=== PATIENT | female | born 1945 | race Caucasian/White ===

== ENCOUNTER 2017-03-02 17:31 | Emergency (ER) | payer OTHER ==
[2017-03-02 17:49] VITALS: TEMP 98.2; O2SAT 95
--- NOTE | 2017-03-02 18:25 | EDPHY ---
General - History Smoking Status: Never smoked Narrative: CHIEF COMPLAINT: Fall, headache, chin lac, hand pain HISTORY OF PRESENT ILLNESS: Patient presents with complaints of headache status post fall. She said she was outside for home when she tripped and fell, striking the concrete. She landed on her hands and then struck her face on the concrete. She has a headache. No loss of consciousness, but she "did see stars for a minute." Some nausea but no vomiting. No changes in vision. She has a chin laceration that is mildly painful. No neck pain or stiffness. No chest pain or shortness of breath. No back pain. No pain in the legs. She does have pain in the right hand, medially. It is mild. It is worse with palpation. Difficulty fully flexing the pinky due to the pain. No numbness or tingling. No other associated complaints or modifying factors. REVIEW OF SYSTEMS: Ten systems reviewed and are negative unless otherwise noted in the HPI PCP: Dr. guerrero SPECIALISTS: None PAST MEDICAL HISTORY: Reviewed. Significant for orthopedic injuries and bronchiectasis with asthma. PAST SURGICAL HISTORY: Reviewed with patient SOCIAL HISTORY: Never smoker. No alcohol. No illicit substance use. Lives with her FAMILY HISTORY: Noncontributory EXAMINATION General Appearance: Alert, no distress Head: normocephalic, atraumatic. chin laceration as noted below. No Carlni sign. No raccoon eyes. Eyes: Pupils equal and round, no conjunctival pallor or injection ENT, Mouth: Mucous membranes moist. Airway widely patent. Neck: Normal inspection, supple, non-tender. No crepitus, step-off or deformity Respiratory: Lungs are clear to auscultation. No wheezing, rhonchi or crackles Cardiovascular: Regular rate and rhythm. No murmur. Pulses intact distally with symmetric radial pulses 2+ but Gastrointestinal: Abdomen is soft and nontender Back: non-tender, no bony abnormalities Neurological: GCS 15. A&O, nonfocal, normal gait. Strength is symmetric in all 4 limbs. No wrist drop. Skin: Warm and dry, no rash. 1.5 cm laceration on the chin, midline. No active bleeding. No foreign body. This is irregular shaped margins Extremities: Tenderness of the right hand, medial greater than lateral. There is no deformity. Range of motion of the right hand is symmetric to the left. No wrist drop. No tenderness of the right wrist. No tenderness of the right elbow or shoulder. Neurovascular intact Psychiatric: Mood and affect normal DIFFERENTIAL DIAGNOSES: Including but not limited to closed head injury, intracranial hemorrhage, chin line, mandibular injury, hand sprain, hand fracture, neck sprain MDM: 6:25 p.m. Mechanical fall with head injury, nausea, headache, chin laceration hand pain. Areas of injury will be imaged with CT scan of the head and cervical spine, and x-ray. The chin laceration is nonpulsatile. It has been anesthetized. Proceed with irrigation closure of this. She is in no acute distress. 7:12 p.m. Case discussed with radiologist Dr. Sanchez. He informed there are no acute changes on the CT scan of the head or cervical spine. There are chronic changes as noted. There is some change in the white vessel changes compared to 2008 MRI. I notified the patient of this. 7:25 p.m. Chin laceration has been repaired without complication. Wound care discussed. Hand x-ray as read by me, without the aid of the radiologist, reveals no acute findings PROCEDURE: Laceration repair Consent: Verbal Location: Midline chin Length of repair: 1.5 cm Complexity: Simple Layer involvement: Single Anesthesia: Local. 1% lidocaine plain. 4 mL Irrigation: Extensive Debridement: None Procedure description: Following good anesthesia, the wound was copiously irrigated. Wound bed was explored and there is no foreign body noted. Wound borders were approximated well with good hemostasis. Tolerated well without complication. Suture/Staple material: 6-0 Prolene, 2 simple interrupted sutures Wound care: Routine as discussed Suture/Staple removal: 5-7 Days (Sincere Greene) Discussion: The patient was evaluated and managed by the Physician Silk Presser/ Nurse Practitioner. My co-signature indicates that I have reviewed this chart and I agree with the findings and plan of care as documented. I am the secondary supervising physician. (Kianna Acevedo) - Objective Vital Signs: Initial Vital Signs Temperature (C) 36.8 C 03/02/17 17:44 Heart Rate 80 03/02/17 17:44 Respiratory Rate 16 03/02/17 17:44 Blood Pressure 165/112 H 03/02/17 17:44 O2 Sat (%) 95 03/02/17 17:44 O2 Delivery Mode Room Air Allergies/Adverse Reactions: erythromycin base [Erythromycin Base] Allergy (Severe, Verified 03/02/17 17:42) SEVERE STOMACH CRAMPS maitake mushroom Allergy (Severe, Verified 03/02/17 17:42) trouble breathing Penicillins Allergy (Severe, Verified 03/02/17 17:42) TROUBLE BREATHING poria mushroom Allergy (Severe, Verified 03/02/17 17:42) trouble breathing reishi mushroom Allergy (Severe, Verified 03/02/17 17:42) trouble breathing rosuvastatin calcium [From Crestor] Allergy (Severe, Verified 03/02/17 17:42) SEVERE TROUBLE BREATHING shiitake mushroom Allergy (Severe, Verified 03/02/17 17:42) aripiprazole [From Abilify] Allergy (Mild, Verified 03/02/17 17:42) ITCH agaricus mushroom (agaricus bisporu Allergy (Verified 03/02/17 17:42) beclomethasone dipropionate [From QNASL] Allergy (Verified 03/02/17 17:42) ACTIFED COLD AND ALLERGY Allergy (Severe, Uncoded 09/26/14 23:35) TROUBLE BREATHING ALL MYCINS Allergy (Severe, Uncoded 09/26/14 23:35) SEVERE STOMACH CRAMPS CHEESE Allergy (Severe, Uncoded 09/27/14 08:13) SEVERE TROUBLE BREATHING MIOLDS Allergy (Severe, Uncoded 09/27/14 08:13) TROUBLE BREATHING Home Medications: Medication Instructions Recorded Atorvastatin Calcium [Lipitor 20 20 mg PO HS 01/20/12 mg (*)] Estradiol [Estradiol 1 MG (*)] 1 mg PO DAILY 01/20/12 Hydrochlorothiazide [HCTZ (*)] 12.5 mg PO DAILY 01/20/12 Levothyroxine [Synthroid 50 mcg 50 mcg PO DAILY06 01/20/12 (*)] Montelukast Sodium [Singulair 10 10 mg PO BID 01/20/12 mg (*)] Omeprazole [Prilosec 40 mg] 40 mg PO BID 01/20/12 buPROPion XL [Wellbutrin 150mg XL] 300 mg PO DAILY 01/20/12 Beclomethasone Qvar 80 [Qvar 80 2 puffs IH TID 09/27/14 (*)] Budesonide/Formoterol 160/4.5 2 puffs IH TID 09/27/14 [Symbicort 160-4.5 Mcg Inh (*)] Mometasone Furoate Nasal [Nasonex] 1 sprays NASAL DAILY PRN 09/27/14 OLANZapine [Zyprexa Zydis] 10 mg PO DAILY 09/27/14 Olopatadine HCl [Patanase] 2 spray NS DAILY PRN 09/27/14 Tiotropium Inhaler [Spiriva 1 inh IH DAILY 09/27/14 Inhaler (RX)] diphenhydrAMINE [Benadryl 25 MG 25 mg PO DAILY PRN 09/27/14 (*)] lamoTRIgine [LamICTAL 100 MG (*)] 100 mg PO HS 09/27/14 lamoTRIgine [LamICTAL 100 MG (*)] 200 mg PO DAILY 09/27/14 Albuterol [Proventil Neb] 3 ml IH Q2 PRN #60 deyvial 10/01/14 Ipratropium/Albuterol [Duoneb (*)] 3 ml IH QID #60 deyvial 10/01/14 Departure - Departure Disposition: Home, Routine, Self-Care Clinical Impression: Closed head injury, Fall, Laceration of chin, Contusion of hand, right Condition: Good Instructions: Care For Your Stitches (ED), Laceration (ED), Head Injury (ED), Fall Prevention (ED) Additional Instructions: 1. Daily wound care as discussed until sutures removed 2. Follow up with primary care physician for closed head injury 3. Follow up with primary care physician Orthopedics for hand injury 4. ED precautions as discussed 5. Return to ED in 5-7 days for suture removal Referrals: Denice Guerrero MD [Primary Care Provider] - As per Instructions
[2017-03-02 20:03] VITALS: BP 177/79; PULSE 79; RESP 20
== END 2017-03-02 20:03 | disposition home or self-care (01) ==
PROC: 0HQ1XZZ Repair Face Skin, External Approach (ICD-10-PCS; principal; 2017-03-02)
DX: S01.81XA Laceration without foreign body of other part of head, initial encounter (principal); S60.221A Contusion of right hand, initial encounter; W01.198A Fall on same level from slipping, tripping and stumbling with subsequent striking against other object, initial encounter

== ENCOUNTER → 2017-05-15 | Outpatient (CLI) | payer OTHER | LOC: FIMAGING 09:20 | PROVIDERS: ATTEND Internal Medicine | DX: Z13.820 Encounter for screening for osteoporosis (principal); M85.89 Other specified disorders of bone density and structure, multiple sites | CPT/HCPCS: G0202 ==

== ENCOUNTER → 2017-11-25 | Outpatient (CLI) | payer OTHER | LOC: FIMAGING 17:11 | PROVIDERS: ATTEND Internal Medicine | DX: R60.0 Localized edema (principal) ==

== ENCOUNTER → 2018-03-23 | Outpatient (CLI) | payer OTHER | LOC: FIMAGING 15:41 | PROVIDERS: ATTEND Internal Medicine | DX: M41.86 Other forms of scoliosis, lumbar region (principal); M51.36 Other intervertebral disc degeneration, lumbar region; M43.16 Spondylolisthesis, lumbar region ==

== ENCOUNTER 2018-05-17 16:42 | Emergency (ER) | payer OTHER ==
--- NOTE | 2018-05-17 16:58 | EDPHY ---
H & P Stated Complaint: near syncope fall Time Seen by Provider: 05/17/18 16:57 HPI/ROS: CHIEF COMPLAINT: Vasovagal event, fall, head injury HISTORY OF PRESENT ILLNESS: The patient was at home and stood up. Shortly after while walking across the room she experienced a vasovagal episode in collapse. She struck her head on a piece of furniture. She presents to the emergency department today complaining of headache and requesting evaluation of her near syncopal event. The patient denies any chest pain or shortness of breath. She does admit she may have had decreased po intake today. The patient denies any symptoms of fever, cough or congestion. The patient denies dysuria. She denies any acute numbness or weakness. She reports the pain in her head is moderate in nature. She is not anticoagulated. REVIEW OF SYSTEMS: A comprehensive 10 point review of systems is otherwise negative aside from elements mentioned in the history of present illness. Source: Patient Exam Limitations: No limitations - Personal History Current Tetanus/Diphtheria Vaccine: Yes Current Tetanus Diphtheria and Acellular Pertussis (TDAP): Yes Tetanus Vaccine Date: < 10 years - Medical/Surgical History Hx Asthma: Yes Hx Chronic Respiratory Disease: No Hx Diabetes: No Hx Cardiac Disease: No Hx Renal Disease: No Hx Cirrhosis: No Hx Alcoholism: No Hx HIV/AIDS: No Hx Splenectomy or Spleen Trauma: No Other PMH: asthma, tonsilectomy, rhematic fever, scarlet fever, red measals, 2 C -secions, Bipolar, bronchietesis, HTN, emilie, - Social History Smoking Status: Never smoked - Physical Exam Exam: General Appearance: Alert, no distress Head: Tenderness to palpation and hematoma noted to the left parietal area Eyes: Pupils equal, round, reactive ENT, Mouth: No hemotympanum, no oral trauma Neck: Nontender, trachea midline Respiratory: No chest wall tender, subcutaneous air, lungs clear bilaterally Cardiovascular: Regular rate and rhythm Abdomen: Abdomen is soft and nontender, pelvis stable Skin: No lacerations, No abrasion Back: No midline T/L/S pain Extremities: Nontender, full range of motion Neurological: A&Ox3, normal motor function, normal sensory exam Constitutional: Initial Vital Signs Temperature (C) 36.8 C 05/17/18 16:52 Heart Rate 90 05/17/18 16:52 Respiratory Rate 16 05/17/18 16:52 Blood Pressure 202/99 H 18 16:52 O2 Sat (%) 96 05/17/18 16:52 O2 Delivery Mode Room Air Allergies/Adverse Reactions: erythromycin base [Erythromycin Base] Allergy (Severe, Verified 05/17/18 16:48) SEVERE STOMACH CRAMPS maitake mushroom Allergy (Severe, Verified 05/17/18 16:48) trouble breathing Penicillins Allergy (Severe, Verified 05/17/18 16:48) TROUBLE BREATHING poria mushroom Allergy (Severe, Verified 05/17/18 16:48) trouble breathing reishi mushroom Allergy (Severe, Verified 05/17/18 16:48) trouble breathing rosuvastatin calcium [From Crestor] Allergy (Severe, Verified 05/17/18 16:48) SEVERE TROUBLE BREATHING shiitake mushroom Allergy (Severe, Verified 05/17/18 16:48) aripiprazole [From Abilify] Allergy (Mild, Verified 05/17/18 16:48) ITCH agaricus mushroom (agaricus bisporu Allergy (Verified 05/17/18 16:48) beclomethasone dipropionate [From QNASL] Allergy (Verified 05/17/18 16:48) ACTIFED COLD AND ALLERGY Allergy (Severe, Uncoded 05/17/18 16:48) TROUBLE BREATHING ALL MYCINS Allergy (Severe, Uncoded 05/17/18 16:48) SEVERE STOMACH CRAMPS CHEESE Allergy (Severe, Uncoded 05/17/18 16:48) SEVERE TROUBLE BREATHING MIOLDS Allergy (Severe, Uncoded 05/17/18 16:48) TROUBLE BREATHING Home Medications: Medication Instructions Recorded Atorvastatin Calcium [Lipitor 20 20 mg PO HS 01/20/12 mg (*)] Levothyroxine [Synthroid 50 mcg 50 mcg PO DAILY06 01/20/12 (*)] Montelukast Sodium [Singulair 10 10 mg PO BID 01/20/12 mg (*)] Omeprazole [Prilosec 40 mg] 40 mg PO BID 01/20/12 buPROPion XL [Wellbutrin 150mg XL] 300 mg PO DAILY 01/20/12 Budesonide/Formoterol 160/4.5 2 puffs IH TID 09/27/14 [Symbicort 160-4.5 Mcg Inh (*)] Mometasone Furoate Nasal [Nasonex] 1 sprays NASAL DAILY PRN 09/27/14 OLANZapine [Zyprexa Zydis] 10 mg PO DAILY 09/27/14 lamoTRIgine [LamICTAL 100 MG (*)] 100 mg PO HS 09/27/14 lamoTRIgine [LamICTAL 100 MG (*)] 200 mg PO DAILY 09/27/14 Albuterol [Proventil Neb] 3 ml IH Q2 PRN #60 deyvial 10/01/14 Azithromycin 05/17/18 Coq-10 05/17/18 Medical Decision Making - Diagnostics EKG Interpretation: EKG: Complete interpretation has been separately recorded in the [facility] archive. Summary impression: Sinus rhythm, rate 86 Imaging Results: Imaging Impressions Head CT 05/17/18 17:18 Impression: 1. Mild periventricular and deep hemispheric white matter change, which is nonspecific and can be seen with small vessel ischemic disease. 2. Mild generalized cerebral atrophy. Results called and discussed with Kamlesh Mujica MD on May 17, 2018 at 1756 hours. ED Course/Re-evaluation: Patient presents to the ED after a vasovagal episode likely precipitated by dehydration. This resulted in a fall and associated head injury. She arrives with a GCS of 15. I have cleared her cervical spine via nexus criteria. The patient's EKG demonstrates no evidence of a significant arrhythmia. She did receive a L of normal saline for vasovagal presyncope. Given the complaints of headache, falling trauma and the patient's age a CT scan of the head was ordered for evaluation of intracranial hemorrhage. Fortunately the results of this study are normal. Additional workup consisted of a normal CBC and serum chemistries noted in the emergency department. The patient underwent serial examinations in the ED over a 2 hr period without evidence of recurrent symptoms, arrhythmia or acute neurologic symptoms. Patient will be discharged home with customary aftercare instructions and return precautions at 7:00 p.m.. Differential Diagnosis: Differential diagnosis considered includes vasovagal syncope, dehydration, metabolic abnormality, arrhythmia, skull fracture, intracranial hemorrhage - Data Points Laboratory Results: Laboratory Results 05/17/18 17:30 05/17/18 17:30 05/17/18 05/17/18 17:30 17:30 WBC 7.86 10^3/uL 10^3/uL (3.80-9.50) RBC 4.31 10^6/uL 10^6/uL (4.18-5.33) Hgb 13.7 g/dL g/dL (12.6-16.3) Hct 41.0 % % (38.0-47.0) MCV 95.1 fL fL (81.5-99.8) MCH 31.8 pg pg (27.9-34.1) MCHC 33.4 g/dL g/dL (32.4-36.7) RDW 13.8 % % (11.5-15.2) Plt Count 300 10^3/uL 10^3/uL (150-400) MPV 8.7 fL fL (8.7-11.7) Neut % (Auto) 65.2 % % (39.3-74.2) Lymph % (Auto) 22.4 % % (15.0-45.0) Toombs % (Auto) 8.7 % % (4.5-13.0) Eos % (Auto) 2.5 % % (0.6-7.6) Baso % (Auto) 0.9 % % (0.3-1.7) Nucleat RBC Rel Count 0.0 % % (0.0-0.2) Absolute Neuts (auto) 5.13 10^3/uL 10^3/uL (1.70-6.50) Absolute Lymphs (auto) 1.76 10^3/uL 10^3/uL (1.00-3.00) Absolute Monos (auto) 0.68 10^3/uL 10^3/uL (0.30-0.80) Absolute Eos (auto) 0.20 10^3/uL 10^3/uL (0.03-0.40) Absolute Basos (auto) 0.07 10^3/uL 10^3/uL (0.02-0.10) Absolute Nucleated RBC 0.00 10^3/uL 10^3/uL (0-0.01) Immature Gran % 0.3 % % (0.0-1.1) Immature Gran # 0.02 10^3/uL 10^3/uL (0.00-0.10) Sodium 138 mEq/L mEq/L (135-145) Potassium 4.1 mEq/L mEq/L (3.5-5.2) Chloride 103 mEq/L mEq/L (97-110) Carbon Dioxide 28 mEq/l mEq/l (22-31) Anion Gap 7 mEq/L mEq/L (6-14) BUN 13 mg/dL mg/dL (7-23) Creatinine 0.7 mg/dL mg/dL (0.6-1.0) Estimated GFR > 60 Glucose 84 mg/dL mg/dL (70-100) Calcium 9.5 mg/dL mg/dL (8.5-10.4) Medications Given: Discontinued Medications Sodium Chloride (Ns) 1,000 mls @ 0 mls/hr IV EDNOW ONE; Wide Open PRN Reason: Protocol Stop: 05/17/18 17:19 Last Admin: 05/17/18 17:25 Dose: 1,000 mls Trimethoprim/Sulfamethoxazole (Bactrim Ds) 1 ea PO EDNOW ONE PRN Reason: Protocol Stop: 05/17/18 17:08 Last Admin: 05/17/18 17:16 Dose: Not Given Departure - Departure Disposition: Home, Routine, Self-Care Clinical Impression: Scalp contusion, Vasovagal syncope Condition: Good Instructions: Scalp Contusion in Adults (ED), Syncope (DC) Additional Instructions: 1. The testing in the emergency department today demonstrates no obvious abnormality. 2. Return to the ED for recurrent passing out, severe headache, numbness, weakness or other concerns. 3. Please try and increase your fluid intake as mild dehydration may have contributed to your symptoms today. 4. Follow up with your primary care provider as needed. Referrals: Lolis Pearl MD [Primary Care Provider] - As per Instructions
[2018-05-17] MEDS ORDERED: SULFAMETHOX/TMP 800/160 MG 1 TAB PO ONE (17:07)
[2018-05-17] MEDS ORDERED: NS 1,000 ML IV ONE (17:18)
--- NOTE | 2018-05-17 17:34 | CPEKG ---
Test Reason : OPEN Blood Pressure : / mmHG Vent. Rate : 086 BPM Atrial Rate : 086 BPM P-R Int : 193 ms QRS Dur : 086 ms QT Int : 361 ms P-R-T Axes : 054 038 043 degrees QTc Int : 432 ms Normal sinus rhythm Confirmed by Kamlesh Mujica ([id number]) on 05/17/2018 5:33:46 PM Referred By: Confirmed By:Kamlesh Mujica
[2018-05-17 17:40] LABS: PLATELET COUNT 300 10^3/uL (150-400)
[2018-05-17 18:46] VITALS: BP 149/76
== END 2018-05-17 18:53 | disposition home or self-care (01) ==
DX: S00.03XA Contusion of scalp, initial encounter (principal); R55 Syncope and collapse; E86.9 Volume depletion, unspecified; W22.8XXA Striking against or struck by other objects, initial encounter; Y92.008 Other place in unspecified non-institutional (private) residence as the place of occurrence of the external cause; Y93.9 Activity, unspecified; Y99.9 Unspecified external cause status